=== PATIENT | female | born 1970 | race African-American/Black ===

== ENCOUNTER → 2019-03-01 | Outpatient (CLI) | payer BC ==
[~2019-03-01] MED LIST: HYDR-3165 PO
--- NOTE | 2019-03-02 09:25 | KCIC ---
Examination: MRI of the left wrist without contrast HISTORY: History of gangrene cyst. COMPARISON: None available Technique: Multiplanar, multisequence MR imaging of the left wrist were performed without contrast FINDINGS: There is a 2.2 x 1.0 cm increased T2 signal with intermediate T1 signal identified in the soft tissue between and deep to the second and fourth extensor tendon compartments, best visualized on series 2 image #13, could be a ganglion cyst. This appears to arise from the dorsal aspect of the scapholunate ligament . This cystic structure abuts the extensor carpi radialis brevis tendon and the extensor digitorum tendons.. There is mild increased signal of the extensor pollicis longus tendon as seen on series 7 image # 18 could be tendinosis however complete evaluation of the extensor pollicis longus tendon is limited on this examination The visualized extrinsic ligaments appear intact. Interosseous ligaments: Scapholunate: Intact. Lunotriquetral: Intact. TFCC complex: Cartilage: Intact. Radial attachment: Intact. Ulnar attachment: Intact. Meniscal homologue: Within normal limits. Extensor carpi ulnaris: Contained in the groove with mild tendinosis. IMPRESSION: 1. A 2.2 cm cystic structure identified between and deep to the second and fourth extensor tendon compartments, best visualized on series 2 image #13, could be a ganglion cyst. This appears to arise from the dorsal aspect of the scapholunate ligament. 2. Mild tendinosis extensor carpi ulnaris. Electronically signed by: Akin Nugent MD (03/02/2019 9:21 AM) [facility]
== END | disposition home or self-care (01) ==
LOC: KCIC MRI 16:29
PROVIDERS: ATTEND Orthopaedic Surgery
DX: M85.48 Solitary bone cyst, other site (principal); M77.8 Other enthesopathies, not elsewhere classified; M67.432 Ganglion, left wrist
CPT/HCPCS: 73221

== ENCOUNTER → 2019-04-11 | Day surgery (SDC) | payer BC ==
[~2019-04-11] VITALS: Ht 162.6 cm; Wt 77.1 kg
[~2019-04-11] MED LIST changes: +BUPIVACAINE MPF 0.5% 30 ML VIAL. ONE; +HYDROmorphone 2 MG/ML VIAL IV PRN; +IV RINGERS,LACTATED 1000ML 1,000 ML IV SCH; +LIDOCAINE 2% PF 5 ML VIAL. ONE; +MIDAZOLAM HCL/PF 2 MG/2 ML VIAL. ONE; +MORPHINE SULFATE 2 MG/ML VIAL. IV PRN; +ONDANSETRON PF 4 MG/2 ML VIAL. IV PRN; +PROCHLORPERAZINE 10 MG/2 ML VIAL. IV PRN; +PROPOFOL 20 ML IV ONE; +fentaNYL PF VIAL 100 MCG/2 ML VIAL IV PRN
--- NOTE | 2019-04-11 09:49 | DISCH ---
DISCHARGE INSTRUCTIONS Condition on Discharge Condition on Discharge: Stable Activity After Discharge Activity Instructions for Disc: Other, see below (fine motor use of left hand permitted keep splint on to limit wrist motion) Lifting Instructions after Dis: No pulling or pushing, Do not lift >10 pounds Weight Bearing Status after Di: Non weight bearing Diet after Discharge Diet after Discharge: Regular Wound Incision Care Wound/Incision Care: Ice to area for comfort, Keep wound/cast CDI, Do not change dressing Contacting the DRXiomara after DC Call your doctor for: Concerns you may have Follow-Up Follow up with: Dr. Jimenes 1 week TERESA JIMENES MD Apr 11, 2019 09:49
[2019-04-11 10:18] LABS: U PREG PATIENT NEGATIVE (NEG)
[2019-04-11 10:50] VITALS: BP 133/89
--- NOTE | 2019-04-11 17:49 | PDOC4 ---
Operative Note Operative Note Date of surgery: 04/11/2019 Preoperative diagnosis: Left wrist dorsal ganglion cyst Postoperative diagnosis: Same, originating from left wrist joint capsule Operative procedure: Excision left wrist dorsal ganglion cyst Surgeon: Yudy Anesthesia: Gen. Estimated blood loss: 2 mL Complications: None Specimens: Ganglion cyst to pathology Operative indications: Please see my detailed preoperative clinic note explaining to her the risks benefits postoperative course of excision of the ganglion the possibility of recurrence nerve or blood vessel damage continued pain medical or other anesthetic complications among others and the rationale for protection to minimize possible recurrence. All her questions were answered she wishes to proceed with surgical evaluation and treatment. Operative text: Patient was identified procedure verified patient placed in the supine position on the operating table. After adequate amounts of Grygla block anesthesia were administered the left upper extremity was prepped and draped in standard sterile fashion. After timeout was performed patient procedure identified and verified and incision was made longitudinally over the left wrist mass between the second and third dorsal compartments. Retinaculum was divided to allow access to the ganglion and extensor tendons were protected and kept stable. Ganglion was dissected thoroughly away and the stalk removed from the joint capsule sent for pathological evaluation. The rent in the joint capsule itself was repaired with #1 Vicryl suture and the area cauterized. Good capsular repair was noted to be fluid tight retinaculum was repaired with Vicryl suture as well subcutaneous closure with buried Vicryl suture subcuticular 4-0 Monocryl Steri-Strips and Mastisol were then placed a mildly compressive dressing with well-padded volar splint were placed to protect the repair and keep the wrist still. Fingers noted be warm pink find deflation of tourniquet patient returned to recovery room having tolerated procedure well TERESA LAWLER MD Apr 11, 2019 17:49
--- NOTE | 2019-04-12 20:05 | PATHOLOGY ---
[facility] Accession Number: [id number] . 01 Material submitted: . wrist - LEFT WRIST DORSUM GANGLION CYST. Modifiers: left . 01 Clinician provided ICD-10: M67.432 . 01 Clinical history: . Left wrist dorsum ganglion cyst . 02 Diagnosis: Segment of dense fibroconnective and fibroadipose tissue, left wrist dorsum: - Ganglion cyst. (JPM/db; 04/12/2019) LBQ/04/12/2019 . 02 Electronically signed: . Robert Bartlett MD, Pathologist NPI- [id number] . 01 Gross description: . The specimen is received in formalin, labeled "Patti Wilks, left wrist dorsum ganglion cyst", is a christianson-white, disrupted cyst measuring 3.0 x 0.7 x 0.4 cm. The specimen is serially sectioned and entirely submitted in A1. ([facility]; 04/11/2019) [facility] . 02 Pathologist provided ICD-10: M67.432 . 02 CPT . 592100 Specimen Comment: A courtesy copy of this report has been sent to Specimen Comment: [phone], . Specimen Comment: Report sent to / DR NAVARRO Performed at: 01 [facility] [address], [place], [place] [id number] MD Gerardo Melissa MD Phone: [phone] Performed at: 02 [facility] [address] [place], [place] [id number] MD Robert Bartlett MD Phone: [phone]
== END ==
LOC: SURG 08:10
PROVIDERS: ATTEND Orthopaedic Surgery
DX: M67.432 Ganglion, left wrist (principal); Z98.51 Tubal ligation status; Z98.890 Other specified postprocedural states; Z98.84 Bariatric surgery status
CPT/HCPCS: 25111; 81025; J0690; J2001; J2250; J2704; J3490; 88304